=== PATIENT | female | born 1985 | race African-American/Black ===

== ENCOUNTER 2016-09-11 06:23 | Emergency (ER) | payer MEDICAID, OTHER ==
[~2016-09-11] VITALS: Ht 172.7 cm; Wt 62.6 kg
[~2016-09-11 06:23] MED LIST: ACYCLOVIR400 MG ORAL; AUGMENTIN TAB875 MG ORAL; BACTRIM-DS1 EA ORAL; DIFLUCAN150 MG PO; DOXYCYCLINE MO100 MG ORAL; HYDROCODON-ACE1 EA15 ORAL; IBUPROFEN600 MG ORAL; KEFLEX500 MG ORAL; NKM; TRAMADOL HCL50 MG ORAL; VALACYCLOVIR500 MG ORAL; ZOVIRAX400 MG GT
[2016-09-11] MEDS ORDERED: ACYCLOVIR400 MG ORAL (07:05)
[2016-09-11 07:22] VITALS: BP_SYST 108; BP_SYST 97; BP_DIAS 61; BP_DIAS 73
--- NOTE | 2016-09-11 08:19 | Emergency Room Report ---
History of Present Illness General Chief Complaint: Female Urogenital Problems Source: Patient Present Illness HPI Patient presents with complaints of vaginal herpes reports that has been on with the past 2 days She feels a flareup also coming on with a tingling sensation She has had this previously At this time denies any fevers or chills Denies any abdominal pain Denies any vaginal discharge Denies any back or flank pain The herpetic lesions she describes as 3/10 pain burning and sharp Allergies: Coded Allergies: No Known Allergies (Unverified , 11/01/12) Patient History Past Medical History: see triage record Pertinent Family History: none Last Menstrual Period: 08/27/16 Now: No Reviewed Nursing Documentation: PMH: Agreed, PSxH: Agreed Nursing Documentation-PMH Past Medical History: No Stated History Hx Hypertension: No Review of Systems All Other Systems: negative except mentioned in HPI Physical Exam Vital Signs Date Time Temp Pulse Resp B/P Pulse Ox O2 Delivery O2 Flow Rate FiO2 09/11/16 06:28 97.9 64 16 97/61 100 Room Air Sp02 EP Interpretation: reviewed, normal General Appearance: well appearing, no apparent distress Head: normocephalic, atraumatic Eyes: bilateral eye EOMI, bilateral eye PERRL ENT: normal pharynx, no angioedema Neck: supple Respiratory: lungs clear Cardiovascular #1: regular rate, rhythm, no edema Gastrointestinal: non tender Musculoskeletal: normal inspection Neurologic: alert, oriented x3 Skin: other - There is evidence of 2-3, blisterlike formation [facility]. on the right side, no obvious dermatomal region, no obvious erythema. Exam performed with female nurse at bedside Lymphatic: no adenopathy Medical Decision Making Diagnostic Impression: Primary Impression: Genital Herpes ER Course On review the patient was here in December with similar complaint On this visit evaluation was performed, and it does reveal evidence of likely early herpetic lesion Patient's placed on oral medication and requires close outpatient followup Last Vital Signs Date Time Temp Pulse Resp B/P Pulse Ox O2 Delivery O2 Flow Rate FiO2 09/11/16 07:22 97.9 68 16 108/73 100 Room Air Status: unchanged Disposition: HOME, SELF-CARE Condition: Stable Scripts Acyclovir* (ACYCLOVIR*) 400 Mg Tablet 400 MG ORAL FIVE TIMES A DAY for 5 Days, TAB Prov: LUDIN HAWK D.O. 09/11/16 Referrals: [facility] ([facility]P) Patient Instructions: Herpes Simplex Test Additional Instructions: Patient is provided with the discharge instructions notified to follow up with primary doctor in the next 2-3 days otherwise return to the er with any worsening symptoms. Please note that this report is being documented using too.me technology. This can lead to erroneous entry secondary to incorrect interpretation by the dictating instrument. LUDIN HAWK D.O. Sep 11, 2016 08:19
== END 2016-09-11 07:22 | disposition home or self-care (01) ==
LOC: EMR 06:50
DX: A60.09 Herpesviral infection of other urogenital tract (principal)
CPT/HCPCS: 99283

== ENCOUNTER 2016-11-27 16:01 | Emergency (ER) | payer OTHER ==
[~2016-11-27] VITALS: Ht 172.7 cm; Wt 63.5 kg
[2016-11-27 17:00] VITALS: BP 107/68
[2016-11-27 17:26] LABS: APPEARANCE,URINE CLEAR; KETONES,URINE NEGATIVE (NEGATIVE); LEUKOCYTE ESTERASE ,URINE NEGATIVE (NEGATIVE); NITRITE,URINE NEGATIVE (NEGATIVE); PH,URINE 7 (4.5-8.0); PROTEIN,URINE NEGATIVE (NEGATIVE); UROBILINOGEN,URINE NORMAL MG/DL (0.0-1.0)
[2016-11-27] MEDS ORDERED: VALTREX500 MG ORAL (17:31)
[2016-11-27 19:14] VITALS: BP 107/68
--- NOTE | 2016-11-28 12:51 | Emergency Room Report ---
History of Present Illness General Chief Complaint: Female Urogenital Problems Source: Patient, Medical Record Present Illness HPI The patient is a 30-year-old female presenting for vaginal pain. She states that she has a history of genital herpes and feels that she is having outbreak. Symptoms began yesterday and described as an 8/10 burning sensation or pain does not radiate. Worse with touch. She denies any dysuria or hematuria. She denies vaginal discharge. Denies N, V, F, chills Allergies: Coded Allergies: No Known Allergies (Unverified , 11/01/12) Patient History Past Medical History: see triage record Pertinent Family History: none Last Menstrual Period: 11/10/16 Now: No Reviewed Nursing Documentation: PMH: Agreed, PSxH: Agreed Nursing Documentation-PMH Past Medical History: No History, Except For Hx Hypertension: No Review of Systems All Other Systems: negative except mentioned in HPI Physical Exam Vital Signs Date Time Temp Pulse Resp B/P Pulse Ox O2 Delivery O2 Flow Rate FiO2 11/27/16 16:26 98.4 81 16 107/68 100 Room Air Sp02 EP Interpretation: reviewed, normal General Appearance: no apparent distress, alert, GCS 15, non-toxic Head: normocephalic, atraumatic Eyes: bilateral eye PERRL, bilateral eye normal inspection Gastrointestinal: normal bowel sounds, non tender, soft, non-distended, no guarding, no rebound Genitourinary: normal inspection, no CVA tenderness Musculoskeletal: back normal, gait/station normal, normal range of motion, non- tender Neurologic: alert, oriented x3, responsive, motor strength/tone normal, sensory intact, speech normal Psychiatric: judgement/insight normal, memory normal, mood/affect normal, no suicidal/homicidal ideation Skin: normal color, warm/dry, well hydrated, rash - 2 herpetic lesions to the external vaginal region Lymphatic: no adenopathy Medical Decision Making PA Attestation Dr. alex is my supervising physician. Patient management was discussed with my supervising physician Diagnostic Impression: Primary Impression: Genital Herpes ER Course The patient is a 30-year-old female presenting for vaginal pain. Differential diagnosis considered but not limited to: UTI, vaginitis, STD, among others PE: vitals WNL. NAD Herpetic lesions of the external vagina. Otherwise unremarkable Symptoms have been present for < 24 hours and she will be treated with antiviral. She is to followup with primary doctor and ER precautions are given Laboratory Tests Test 11/27/16 16:00 Urine Color Pale yellow Urine Appearance Clear Urine pH 7 (4.5-8.0) Urine Specific [place] 1.005 (1.005-1.035) Urine Protein Negative (NEGATIVE) Urine Glucose (UA) Negative (NEGATIVE) Urine Ketones Negative (NEGATIVE) Urine Occult Blood Negative (NEGATIVE) Urine Nitrite Negative (NEGATIVE) Urine Bilirubin Negative (NEGATIVE) Urine Urobilinogen Normal MG/DL (0.0-1.0) Urine Leukocyte Esterase Negative (NEGATIVE) Urine HCG, Qualitative Negative Lab Results Impression Unremarkable Last Vital Signs Date Time Temp Pulse Resp B/P Pulse Ox O2 Delivery O2 Flow Rate FiO2 11/27/16 19:14 98.4 16 107/68 100 Room Air 11/27/16 16:26 81 Status: improved Disposition: HOME, SELF-CARE Condition: Improved Scripts Valacyclovir Hcl* (VALTREX*) 500 Mg Tablet 500 MG ORAL TWICE A DAY, #6 TAB 0 Refills Prov: TAMEKA ASHBY 11/27/16 Referrals: [facility] ([facility]P) Patient Instructions: Genital Herpes Additional Instructions: I discussed my findings with the patient. All questions and concerns have been answered. Treatment and medication compliance have been addressed. I advised the patient that they need to follow up with PMD in 3-5 days. Return to ED if symptoms worsen, new symptoms arise, or if needed for any reason. Patient verbalized understanding of discharge instructions. TAMEKA ASHBY Nov 28, 2016 12:51
== END 2016-11-27 18:00 | disposition home or self-care (01) ==
LOC: EMR 18:00
DX: A60.00 Herpesviral infection of urogenital system, unspecified (principal)
CPT/HCPCS: 81003; 81025; 99283

== ENCOUNTER 2017-03-15 08:47 | Emergency (ER) | payer OTHER ==
[~2017-03-15] VITALS: Ht 172.7 cm; Wt 64.9 kg
[~2017-03-15 08:47] MED LIST changes: +VALTREX500 MG ORAL
[2017-03-15 09:10] VITALS: BP 114/74
[2017-03-15] MEDS ORDERED: ZOVIRAX200 MG GT (09:26)
[2017-03-15 09:37] VITALS: BP 114/74
--- NOTE | 2017-03-16 12:37 | Emergency Room Report ---
History of Present Illness General Chief Complaint: Female Urogenital Problems Source: Patient Present Illness HPI 31 yo F with genital herpes p/w outbreak. sttes small vesicles painful x 2 days. no fever or chills. has taken acyclovir in the past. no vaginl beleding or abnormal vaginl dC Allergies: Coded Allergies: No Known Allergies (Unverified , 11/01/12) Patient History Past Medical History: see triage record Past Surgical History: none Pertinent Family History: none Last Menstrual Period: 03/12/17 Now: No Reviewed Nursing Documentation: PMH: Agreed, PSxH: Agreed Nursing Documentation-PMH Past Medical History: No Stated History Hx Hypertension: No Review of Systems All Other Systems: negative except mentioned in HPI Physical Exam Vital Signs Date Time Temp Pulse Resp B/P (MAP) Pulse Ox O2 Delivery O2 Flow Rate FiO2 03/15/17 09:01 97.9 65 18 114/74 99 Room Air Sp02 EP Interpretation: reviewed, normal General Appearance: normal inspection, well appearing, no apparent distress, alert, GCS 15, non-toxic Head: normocephalic, atraumatic Eyes: bilateral eye normal inspection, bilateral eye PERRL, bilateral eye EOMI ENT: normal ENT inspection, normal pharynx, normal voice, moist mucus membranes Neck: normal inspection, full range of motion, supple Respiratory: normal inspection, lungs clear, normal breath sounds, no respiratory distress, no retraction, no wheezing, speaking full sentences, chest symmetrical Cardiovascular #1: normal inspection, regular rate, rhythm, no edema, normal capillary refill Cardiovascular #2: 2+ radial (R), 2+ radial (L) Gastrointestinal: normal inspection, non tender, soft, non-distended, no guarding Genitourinary: other - small vesicular lesions noted on labia majora Musculoskeletal: normal inspection, back normal, normal range of motion, non- tender Neurologic: normal inspection, alert, oriented x3, responsive, motor strength/ tone normal, sensory intact, normal gait, speech normal Psychiatric: normal inspection, judgement/insight normal, memory normal Skin: normal inspection, normal color, no rash, warm/dry, well hydrated, normal turgor Medical Decision Making Diagnostic Impression: Primary Impression: Genital Herpes ER Course 31 yo F with genital herpes Dispo: Patient DCed home with course of acyclovir told patient to fu with obgyn / pcp in 1 week without fail Last Vital Signs Date Time Temp Pulse Resp B/P (MAP) Pulse Ox O2 Delivery O2 Flow Rate FiO2 03/15/17 09:37 97.9 68 18 114/74 99 Room Air Disposition: HOME, SELF-CARE Condition: Stable Scripts Acyclovir (Acyclovir) 200 Mg Capsule 400 MG GT FIVE TIMES A DAY for 5 Days, #50 CAP 0 Refills Prov: Juan David Ch M.D. 03/15/17 Referrals: [facility] ([facility]P) Patient Instructions: Genital Herpes Juan David Ch M.D. Mar 16, 2017 12:37
== END 2017-03-15 09:52 | disposition home or self-care (01) ==
LOC: EMR 09:02
DX: A60.04 Herpesviral vulvovaginitis (principal)
CPT/HCPCS: 99282

== ENCOUNTER 2017-09-20 09:45 | Emergency (ER) | payer OTHER ==
[~2017-09-20] VITALS: Ht 172.7 cm; Wt 64.4 kg
[~2017-09-20 09:45] MED LIST changes: +ZOVIRAX200 MG GT
[2017-09-20 10:03] VITALS: BP 122/75
[2017-09-20 10:49] VITALS: BP 122/75
--- NOTE | 2017-09-20 10:52 | Emergency Room Report ---
History of Present Illness General Chief Complaint: Pain Source: Patient Present Illness HPI Patient presents with complaints of right hand pain Reports that 2 weeks ago hit it on a table has pain to the base of the thumb going up to the outside aspect of the finger This happened 2 weeks ago and as the discomfort persisted she presents to the ER Pain is worse with flexing the thumb backwards Denies any numbness or tingling Patient is right-hand dominant Allergies: Coded Allergies: No Known Allergies (Unverified , 11/01/12) Patient History Past Medical History: see triage record Pertinent Family History: none Last Menstrual Period: 09/01/17 Now: No Reviewed Nursing Documentation: PMH: Agreed; PSxH: Agreed Nursing Documentation-PMH Past Medical History: No Stated History Hx Hypertension: No Review of Systems All Other Systems: negative except mentioned in HPI Physical Exam Vital Signs Date Time Temp Pulse Resp B/P (MAP) Pulse Ox O2 Delivery O2 Flow Rate FiO2 09/20/17 09:54 98.3 62 16 122/75 99 Room Air 98.2 Sp02 EP Interpretation: reviewed, normal General Appearance: well appearing, no apparent distress Head: normocephalic, atraumatic Eyes: bilateral eye PERRL, bilateral eye EOMI ENT: normal pharynx Neck: supple Respiratory: lungs clear Musculoskeletal: other - No obvious swelling or edema, patient able to make press tender long goods and approximate all digits with the thumb, some discomfort is palpated at the base of the thumb, no snuffbox tenderness Neurologic: alert, oriented x3, responsive, cardiac rehabilitation specialist III-XII nml as tested Skin: normal color, no rash Lymphatic: no adenopathy Procedures Splinting Splinting : Consent: Verbal Location: Right hand Pre-Made Type: Thumb spica Splint: thumb spica Pre-Proc Neuro Vasc Exam: normal Post-Proc Neuro Vasc Exam: normal Patient Tolerated: Well Complications: None Medical Decision Making Diagnostic Impression: Primary Impression: hand contusion ER Course Hand x-ray does not show any obvious acute fractures given the patient's discomfort she was put into a splint And stable for close outpatient follow-up Other X-Ray Diagnostic Results Other X-Ray Diagnostic Results : X-Ray ordered: Right hand # of Views/Limited Vs Complete: 3 View Indication: Pain EP Interpretation: Yes Interpretation: no dislocation, no soft tissue swelling, no fractures Impression: No acute disease Electronically Signed by: Skip Graham DO Last Vital Signs Date Time Temp Pulse Resp B/P (MAP) Pulse Ox O2 Delivery O2 Flow Rate FiO2 09/20/17 10:03 98.2 74 16 122/75 99 Room Air 98.2 Status: improved Disposition: HOME, SELF-CARE Condition: Improved [facility]errals: [facility] ([facility]) Patient Instructions: Contusion, Paik-of-Nnnm Additional Instructions: Patient is provided with the discharge instructions notified to follow up with primary doctor in the next 2-3 days otherwise return to the er with any worsening symptoms. Please note that this report is being documented using Cornice technology. This can lead to erroneous entry secondary to incorrect interpretation by the dictating instrument. Skip Graham DO Sep 20, 2017 10:52
--- NOTE | 2017-09-20 11:13 | Diagnostic Imaging Report ---
Indication: Pain Technique: XRAY Hand Complete R Comparison: 11/01/2012 Findings: No evidence of acute fracture or dislocation. Joint spaces and alignment preserved. No definite focal soft tissue abnormality is appreciated radiographically. No radiopaque foreign body seen. Impression: No acute fracture or dislocation.
== END 2017-09-20 10:49 | disposition home or self-care (01) ==
LOC: EMR 10:32
DX: S60.221A Contusion of right hand, initial encounter (principal); W22.8XXA Striking against or struck by other objects, initial encounter; Y92.9 Unspecified place or not applicable
CPT/HCPCS: 99283

== ENCOUNTER 2018-10-28 08:07 | Emergency (ER) | payer OTHER ==
[~2018-10-28] VITALS: Ht 172.7 cm; Wt 70.8 kg
[2018-10-28 08:15] VITALS: BP 120/73
--- NOTE | 2018-10-28 08:16 | NUR ---
ED Nurse Note: pt walked in to ED due to right knee pain for 1 week. per pt, had intermittent pain for long time. denies any recent injury. ambulatory with steady gait without any assistance. per pt, sometimes it is hard to weight on it due to pain. no swelling or redness or local heat noted. AAO x4. respirations even and non-labored noted. will wait for the further order.
--- NOTE | 2018-10-28 08:28 | Emergency Room Report ---
History of Present Illness General Chief Complaint: Pain Source: Patient Present Illness HPI Patient presents emergency department today complaining of right knee pain. Patient states that she injured her right knee a couple years ago at that time had a normal x-ray. She was told that it might have been a meniscal injury. However patient did not have any MRI evaluations or further treatment. Patient states that since then her pain in her knee has been intermittent and over the last week has been more severe. 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 She states that the pain seemed to get worse with standing. The pain is localized to the medial aspect of her right knee near the tibial tuberosity.. The pain of the knee seems to get worse with pressure and movement. Patient denies any other injuries. Symptoms noted to be moderate. No other modifying factors. No other associated signs and symptoms. No other complaints were noted. Allergies: Coded Allergies: No Known Allergies (Unverified , 11/01/12) Patient History Past Medical History: none Past Surgical History: none Pertinent Family History: none Social History: Denies: smoking, alcohol use, drug use Last Menstrual Period: 10/17/18 Reviewed Nursing Documentation: PMH: Agreed; PSxH: Agreed Nursing Documentation-PMH Past Medical History: No History, Except For Hx Cardiac Problems: No - Genital herpes Hx Hypertension: No Review of Systems All Other Systems: negative except mentioned in HPI Physical Exam Vital Signs Date Time Temp Pulse Resp B/P (MAP) Pulse Ox O2 Delivery O2 Flow Rate FiO2 10/28/18 08:11 98.1 77 16 120/73 (89) 99 Room Air Sp02 EP Interpretation: reviewed, normal General Appearance: normal inspection, well appearing, no apparent distress, alert Head: atraumatic Eyes: bilateral eye normal inspection ENT: normal ENT inspection, hearing grossly normal, normal voice Neck: normal inspection, full range of motion, supple, no bony tend Respiratory: normal inspection, lungs clear, normal breath sounds, no respiratory distress, no retraction, no wheezing Cardiovascular #1: regular rate, rhythm, no edema Gastrointestinal: normal inspection, normal bowel sounds, non tender, soft, no guarding, no hernia Genitourinary: no CVA tenderness Musculoskeletal: normal inspection, back normal, tender - Right knee medial aspect Neurologic: normal inspection, alert, responsive, speech normal Psychiatric: normal inspection, judgement/insight normal, mood/affect normal Skin: normal inspection, normal color, no rash Medical Decision Making Diagnostic Impression: Primary Impression: Knee sprain Qualified Codes: S83.91XA - Sprain of unspecified site of right knee, initial encounter ER Course Patient presents emergency department today complaining of right knee pain. Differential considerations include acute knee injury, knee strain, knee fracture just name a few. Given patient's presentation of her x-rays were indicated. X-rays of patient's right knee were negative for fracture. therefore I felt the patient likely strained her knee or could have soft tissue injury. Patient was advised to follow-up outpatient return to ER for any worsening symptoms and as needed. Patient is advised to follow up with primary doctor in 2-3 days and return the emergency room for any worsening symptoms and as needed. Other X-Ray Diagnostic Results Other X-Ray Diagnostic Results : X-Ray ordered: Right knee x-ray # of Views/Limited Vs Complete: 3 View Indication: Pain EP Interpretation: Yes Interpretation: no dislocation, no soft tissue swelling, no fractures Impression: No acute disease Electronically Signed by: Electronically signed by Brendan Kuhn MD Last Vital Signs Date Time Temp Pulse Resp B/P (MAP) Pulse Ox O2 Delivery O2 Flow Rate FiO2 10/28/18 08:15 98.1 77 16 120/73 99 Room Air Status: improved Disposition: HOME, SELF-CARE Condition: Stable Scripts Meloxicam* (MELOXICAM*) 15 Mg Tablet 15 MG PO DAILY, #14 TAB Prov: Brendan Kuhn MD 10/28/18 Hydrocodone Bit/Acetaminophen 5-325* (NORCO 5-325*) 1 Each Tablet 1 TAB ORAL Q6H PRN for For Pain, #10 TAB 0 Refills Prov: Brendan Kuhn MD 10/28/18 Brendan Kuhn MD Oct 28, 2018 08:27
[2018-10-28] MEDS ORDERED: MELOXICAM15 MG PO (08:45)
[2018-10-28] MEDS ORDERED: NORCO 5-325 TA1 EACH ORAL (08:45)
--- NOTE | 2018-10-28 08:47 | NUR ---
ED Nurse Note: PT A/O X 4, STATED HER PAIN IS SLIGHTLY BETTER, AT 6/10 NOW, AND THAT SHE WILL TAKE PAIN MEDICATION ONCE AT HOME. PT VERBALIZED UNDERTANDING OF DC INSTRUCTIONS AND ALSO EDUCATION ON NEWLY PRESCRIBED MEDICATIONS. PT RECEIVED A BACK TO WORK DRS NOTE. AMBULATED WITH A STEDAY GAIT WITHOUT THE NEED OF ANY DEVICE. PT LEFT BY SELF.
--- NOTE | 2018-10-28 17:47 | Diagnostic Imaging Report ---
Indications: Pain, trauma Technique: Three views of the right knee Comparison: None Findings: No acute fractures. No dislocations. Joint spaces are preserved. No radiopaque foreign body. Normal mineralization. Impression: Normal This agrees with the preliminary interpretation provided by the emergency room physician
== END 2018-10-28 08:51 | disposition home or self-care (01) ==
LOC: EMR 08:51
DX: S83.91XA Sprain of unspecified site of right knee, initial encounter (principal); X58.XXXA Exposure to other specified factors, initial encounter; Y92.9 Unspecified place or not applicable
CPT/HCPCS: 99283

== ENCOUNTER 2019-04-17 11:19 | Emergency (ER) | payer OTHER ==
[~2019-04-17] VITALS: Ht 172.7 cm; Wt 74.4 kg
[~2019-04-17 11:19] MED LIST changes: +MELOXICAM15 MG PO; +NORCO 5-325 TA1 EACH ORAL
[2019-04-17] MEDS ORDERED: NKM (11:25)
--- NOTE | 2019-04-17 11:43 | NUR ---
ED Nurse Note: patient walked in ED from home c/o headaches since last month, and nasal pressure x 2 weeks. Patient denies n/v/changes in vision.
[2019-04-17] MEDS ORDERED: ZYRTEC10 MG ORAL (11:45)
[2019-04-17] MEDS ORDERED: AUGMENTIN 875-1 EAC1 ORAL (11:45)
[2019-04-17] MEDS ORDERED: Acetaminophen 500mg (ES) tab ORAL ONE (11:45)
--- NOTE | 2019-04-17 11:45 | Emergency Room Report ---
History of Present Illness General Chief Complaint: Headache Source: Patient Present Illness HPI 33-year-old female presents with sinus pressure, sinus pain x2 weeks, no aggravating alleviating factors, severity is moderate, constant, she feels pressure in the front of her head, no visual changes, headache is gradual onset been ongoing for 2 weeks not sudden, severity is moderate patient denies any fevers chills chest pain shortness of breath patient presents for evaluation Allergies: Coded Allergies: No Known Allergies (Unverified , 11/01/12) Patient History Past Medical History: see triage record Last Menstrual Period: 04/15/2019 Now: No Reviewed Nursing Documentation: PMH: Agreed; PSxH: Agreed Nursing Documentation-PMH Past Medical History: No Stated History Hx Cardiac Problems: No - Genital herpes Hx Hypertension: No Review of Systems All Other Systems: negative except mentioned in HPI Physical Exam Vital Signs Date Time Temp Pulse Resp B/P (MAP) Pulse Ox O2 Delivery O2 Flow Rate FiO2 04/17/19 11:21 97.5 67 17 114/68 (83) 100 Room Air General Appearance: well appearing, no apparent distress Head: normocephalic, atraumatic Eyes: bilateral eye PERRL, bilateral eye EOMI ENT: hearing grossly normal, normal voice, TMs + canals normal, uvula midline, moist mucus membranes, other - Patient with complete opacification of the sinuses, transillumination positive Neck: full range of motion, supple Respiratory: no respiratory distress, speaking full sentences Neurologic: alert, normal gait Psychiatric: mood/affect normal Skin: no rash Medical Decision Making Diagnostic Impression: Primary Impression: Sinusitis Qualified Codes: J01.90 - Acute sinusitis, unspecified ER Course 33-year-old female presents with pressure-like facial pain x2 weeks, patient meets indications for treatment with antibiotics for sinusitis, will provide Augmentin, cetirizine disposition home with return precautions Last Vital Signs Date Time Temp Pulse Resp B/P (MAP) Pulse Ox O2 Delivery O2 Flow Rate FiO2 04/17/19 11:21 97.5 67 17 114/68 (83) 100 Room Air Disposition: HOME, SELF-CARE Condition: Stable Scripts Cetirizine Hcl* (ZYRTEC*) 10 Mg Tablet 10 MG ORAL DAILY, #30 TAB 0 Refills Prov: Rajat Lopez MD 04/17/19 Amoxicillin/Potassium Clav 875-125* (AUGMENTIN 875-125 TABLET*) 1 Each Tablet 1 TAB ORAL TWICE A DAY, #20 TAB Prov: Rajat Lopez MD 04/17/19 Referrals: [facility]aut[facility]. [facility] Patient Instructions: Sinus Headache, Sinusitis, Adult, [id number] Additional Instructions: The patient was provided with discharge instructions, notified to follow-up with a primary care doctor and or specialist in the next 24-48 hours, and to return to the ED if they have worsening of their symptoms. Please note that this report is being documented using DRAGON technology. This can lead to erroneous entry secondary to incorrect interpretation by the dictating instrument. Rajat Lopez MD Apr 17, 2019 11:45
[2019-04-17 11:50] VITALS: BP 114/68
--- NOTE | 2019-04-17 11:50 | NUR ---
ER DISCHARGE NOTE: Patient is cleared to be discharged per ERMD, pt is aox4, on room air, with stable vital signs. pt was given dc and prescription instructions, pt was able to verbalize understanding, pt id band removed. pt is able to ambulate with steady gait. pt took all belongings.
[2019-04-17 11:51] VITALS: BP 114/68
== END 2019-04-17 12:10 | disposition home or self-care (01) ==
LOC: EMR 12:10
DX: J01.90 Acute sinusitis, unspecified (principal)
CPT/HCPCS: 81025; Z7502; 99282